=== PATIENT | female | born 1965 | race Caucasian/White ===

== ENCOUNTER 2017-12-24 09:05 | Inpatient (IN) | payer OTHER ==
[2017-12-24 09:50] LABS: BASOPHILS # (AUTO) 0.1 10^3/uL (0.0-0.1); BASOPHILS % (AUTO) 0.7 %; HGB - HEMOGLOBIN 14.8 g/dL (12.0-16.0); LYMPHOCYTES # (AUTO) 0.6 10^3/uL (1.5-3.5); LYMPHOCYTES % (AUTO) 3.4 %; MEAN CORPUSCULAR HEMOGLOBIN 29.3 pg (27.0-31.0); MEAN CORPUSCULAR HGB CONC 33.3 g/dL (32.0-36.0); MEAN CORPUSCULAR VOLUME 87.9 fL (81.0-99.0); MEAN PLATELET VOLUME 8.7 fL (7.9-10.8); MONOCYTES # (AUTO) 0.5 10^3/uL (0.0-1.0); MONOCYTES % (AUTO) 2.7 %; NEUTROPHILS % (AUTO) 93.2 %; PLT - PLATELET COUNT 323 10^3/uL (130-450); RED BLOOD COUNT 5.06 10^6/uL (4.20-5.40); RED CELL DISTRIBUTION WIDTH 13.1 % (12.0-15.0); WHITE BLOOD COUNT 18.2 x10^3/uL (4.8-10.8)
--- NOTE | 2017-12-24 09:55 | ED Physician Documentation ---
History of Present Illness - Stated complaint Stated Complaint: VOMITING/DIARRHEA - Chief complaint Chief Complaint: Abd Pain - Additonal information Additional information: hx from pt 52 female recent colonoscopy showed no cancer but has diverticulosis NV diarrhea since midnight lower abd pain L > R now stool is all blood no urinary sx no blood thinners no travel no sick contacts maybe ate a bad cheese stick no prior surgery Review of Systems Constitutional: denies: Fever, Chills Cardiac: denies: Chest pain / pressure Respiratory: denies: Dyspnea GI: reports: Abdominal Pain, Nausea, Vomiting, Diarrhea, Bloody / black stool. denies: Hematemesis : denies: Dysuria, Hematuria, Now EGA Endocrine: denies: Easy bruising / bleeding Immunocompromised: denies: Immunocompromised PD PAST MEDICAL HISTORY - Past Medical History : Kidney stones - Past Surgical History Past Surgical History: No - Present Medications Home Medications: Ambulatory Orders Medication Instructions Recorded Confirmed Cetirizine HCl [Zyrtec] 10 mg PO PRN 01/25/15 01/25/15 Aspirin [Adult Aspirin Regimen] 81 mg PO 12/24/17 - Allergies Allergies/Adverse Reactions: Allergies Allergy/AdvReac Type Severity Reaction Status Date / Time No Known Drug Allergies Allergy Verified 12/24/17 09:34 - Social History Does the pt smoke?: No Smoking Status: Never smoker Does the pt drink ETOH?: No Does the pt have substance abuse?: No - Immunizations Immunizations are current?: Yes PD ED PE NORMAL - Vitals Vital signs reviewed: Yes - Cardiac Cardiac: RRR - Respiratory Respiratory: No respiratory distress - Abdomen Abdomen: Soft, Other (mod TTP LLQ s peritoneal signs, no hermia) - Rectal Rectal: Other (small hemorrhoid s bleeding, no mass on HUMPHREY, no fissure, bloody mucous on exam) Results - Vitals Vitals: Vital Signs - 24 hr 12/24/17 12/24/17 12/24/17 09:18 10:35 12:58 Temperature 36.4 C L Heart Rate 94 95 89 Respiratory 20 18 Rate Blood Pressure 145/75 H 127/70 134/64 H O2 Saturation 99 100 97 12/24/17 15:01 Temperature Heart Rate 89 Respiratory Rate Blood Pressure 115/64 O2 Saturation 95 Oxygen O2 Source Room air - Labs Labs: Laboratory Tests 12/24/17 12/24/17 12/24/17 08:35 09:35 09:35 WBC 18.2 H RBC 5.06 Hgb 14.8 Hct 44.4 MCV 87.9 MCH 29.3 MCHC 33.3 RDW 13.1 Plt Count 323 MPV 8.7 Neut # (Auto) 17.0 H Lymph # (Auto) 0.6 L [place] # (Auto) 0.5 Eos # (Auto) 0.0 Baso # (Auto) 0.1 Absolute Nucleated RBC 0.00 Nucleated RBC % 0.0 Sodium 136 Potassium 4.3 Chloride 100 L Carbon Dioxide 21 Anion Gap 15.0 H BUN 20 Creatinine 0.8 Estimated GFR (MDRD) 75 L Glucose 160 H Calcium 9.4 Total Bilirubin 1.0 AST 41 ALT 30 Alkaline Phosphatase 85 Total Protein 8.2 Albumin 4.6 Globulin 3.6 Albumin/Globulin Ratio 1.3 Lipase 28 Serum HCG, Qual NEGATIVE Urine Color Urine Clarity Urine pH Ur Specific [place] Urine Protein Urine Glucose (UA) Urine Ketones Urine Occult Blood Urine Nitrite Urine Bilirubin Urine Urobilinogen Ur Leukocyte Esterase Ur Microscopic Review Urine Culture Comments 12/24/17 11:25 WBC RBC Hgb Hct MCV MCH MCHC RDW Plt Count MPV Neut # (Auto) Lymph # (Auto) [place] # (Auto) Eos # (Auto) Baso # (Auto) Absolute Nucleated RBC Nucleated RBC % Sodium Potassium Chloride Carbon Dioxide Anion Gap BUN Creatinine Estimated GFR (MDRD) Glucose Calcium Total Bilirubin AST ALT Alkaline Phosphatase Total Protein Albumin Globulin Albumin/Globulin Ratio Lipase Serum HCG, Qual Urine Color YELLOW Urine Clarity CLEAR Urine pH 5.5 Ur Specific [place] 1.025 Urine Protein NEGATIVE Urine Glucose (UA) NEGATIVE Urine Ketones TRACE Urine Occult Blood NEGATIVE Urine Nitrite NEGATIVE Urine Bilirubin NEGATIVE Urine Urobilinogen 0.2 (NORMAL) Ur Leukocyte Esterase NEGATIVE Ur Microscopic Review NOT INDICATED Urine Culture Comments NOT INDICATED - Rads (name of study) CTAP with IV con Radiology: See rad report (segmental marked nodular thickening and meld pericolonic edema involving distal transverse colon to distal descending colon c ould be ischemic (but rad report states nl vasculatur and CT was with IV con) or inflammatory (no hx UC crohns) or infectious (favor), no perf or asbcess, diverticulosis, no -itis, renal calculi no ureteral stones, fatty liver) PD MEDICAL DECISION MAKING - ED course ED course: CT shows colitis transverse and desc colon - ddx includes ischemic and inflammatory but has no risk factos for ischemic such as a fib and would think GI dz such as crohns or UC would have presented before age 52 deirdre[ect infectious gave unasyn severe colitis with GIB, presently hemodynamically stable pain difficult to control d/w pt option of dc home on clear liquids PO pain meds and ab and next day PMD follow up for recheck exam amd H/H vs admit to obs for IVF and ab and serial H/H - she states she will be unlikely to secure next day fup for ER vist at [facility] so will d/w hospitalist to admit gave unasyn pending stool culture spoke to hospitalist at 1410 and she will admit Departure - Departure Disposition: 66 [facility] DC/Xfer Clinical Impression: Colitis GI bleed Qualifiers: GI bleed type/associated pathology: unspecified gastrointestinal hemorrhage type Qualified Code(s): K92.2 - Gastrointestinal hemorrhage, unspecified Leukocytosis Qualifiers: Leukocytosis type: unspecified Qualified Code(s): D72.829 - Elevated white blood cell count, unspecified Condition: Good
[2017-12-24] MEDS ORDERED: ONDANSETRON 4 MG/2 ML VIAL IVP STA (09:57)
[2017-12-24] MEDS ORDERED: MORPHINE 2 MG/ML CARPUJECT IVP STA ×3 (09:57→13:59)
[2017-12-24] MEDS ORDERED: SODIUM CHLORIDE 0.9% 1,000 ML IV ONE (09:57)
[2017-12-24 10:06] LABS: ALBUMIN 4.6 g/dL (3.2-5.5); ALBUMIN/GLOBULIN RATIO 1.3 (1.0-2.2); CALCIUM 9.4 mg/dL (8.5-10.3); CREATININE 0.8 mg/dL (0.4-1.0); TOTAL PROTEIN 8.2 g/dL (6.7-8.2)
[2017-12-24 10:18] LABS: HCG,QUALITATIVE BLOOD NEGATIVE
[2017-12-24 11:39] LABS: BILIRUBIN,URINE NEGATIVE (NEGATIVE); GLUCOSE, URINE (UA) NEGATIVE (NEGATIVE); KETONES,URINE (UA) TRACE mg/dL (NEGATIVE); LEUKOCYTE ESTERASE, URINE NEGATIVE (NEGATIVE); NITRITE,URINE NEGATIVE (NEGATIVE); OCCULT BLOOD,URINE NEGATIVE (NEGATIVE); PH,URINE 5.5 PH (5.0-7.5); PROTEIN,URINE NEGATIVE (NEGATIVE); UROBILINOGEN,URINE 0.2 (NORMAL) E.U./dL (NORMAL)
[2017-12-24 11:43] LABS: CLARITY,URINE CLEAR (CLEAR)
[2017-12-24] MEDS ORDERED: IOPAMIDOL-300 100 ML VIAL ONE (12:01)
--- NOTE | 2017-12-24 12:47 | CT Report ---
Reason: lower abd pain GIB Procedure Date: 12/24/2017 Accession Number: [id number] / [id number] Procedure: CT - Abdomen/Pelvis W/ CPT Code: FULL RESULT: EXAM: CT ABDOMEN AND PELVIS EXAM DATE: 12/24/2017 12:18 PM. CLINICAL HISTORY: Lower abdominal pain. GI bleed. COMPARISONS: 01/25/2015. TECHNIQUE: Routine helical CT imaging was performed through the abdomen and pelvis. IV contrast: Isovue-300 100 mL. Enteric contrast: No. Reconstructions: Coronal and sagittal. In accordance with CT protocol optimization, one or more of the following dose reduction techniques were utilized for this exam: automated exposure control, adjustment of mA and/or KV based on patient size, or use of iterative reconstructive technique. FINDINGS: Lung Bases: Bibasilar scar/atelectasis. Included portions of the heart are unremarkable. Small hiatal hernia. Liver: Diffuse fatty liver. Patent portal vein. Gallbladder/Bile Ducts: Unremarkable. Spleen: Normal. Pancreas: Normal. Adrenal Glands: Normal. Kidneys: Kidneys enhance symmetrically. Bilateral renal low attenuation lesions are again seen the largest in the mid upper pole of both kidneys measuring up to 8-9 mm. Bilateral nonobstructing renal calculi are seen the largest of which is present in the lower pole of the left kidney measuring 8 mm. No hydronephrosis. No ureteral dilatation or ureteral calculi. Peritoneal Cavity/Bowel: Stomach is nondistended. Descending duodenal diverticula noted. No small bowel obstruction or small bowel wall thickening. Small fatty umbilical hernia. Circumferential nodular thickening and pericolonic edema seen involving and extending from the distal transverse colon to the distal descending colon to its junction with the sigmoid colon. Distal colonic largely sigmoid colon diverticulosis. No free air or abscess. The appendix is well visualized and normal. Pelvic Organs: Area of heterogeneity in the fundus of the uterus measuring 1.9 cm as well as a lobular contour along the right uterus measuring up to 3 cm may represent uterine myomas. No pelvic adenopathy or pelvic free fluid. The urinary bladder is unremarkable. Vasculature: No aneurysms or other significant abnormality. Bones: Degenerative changes of the lumbar spine greatest at L3-L4. Lumbar facet arthropathy. Mild dextroscoliosis of the lower lumbar spine. No acute osseous abnormalities. Other: None. IMPRESSION: 1. Segmental marked nodular thickening and mild pericolonic edema involving the distal transverse colon to the distal descending colon. Findings may be due to focal segment of ischemic colitis versus inflammatory/infectious colitis. No free air or abscess. 2. Normal appendix. 3. Colonic diverticulosis. No diverticulitis. No bowel obstruction. 4. Nonobstructing bilateral renal calculi. 5. Fatty liver. RADIA
[2017-12-24] MEDS ORDERED: AMPICILLIN/SULBACTAM 3 GM in SODIUM CHLORIDE 0.9% MINIBAG 100 ML IV STA (13:59)
[2017-12-24] MEDS ORDERED: D5.45NS W/20 MEQ KCL 1,000 ML IV STA (14:01)
--- NOTE | 2017-12-24 15:16 | CONSULTATION NOTE ---
Referring Provider Consult Date: 12/24/17 Chief Complaint - Chief Complaint Chief Complaint: Blood in stool History of Present Illness - History of Present Illness HPI Comment/Other: 52 yo woman admitted with one day of lower abdominal pain, rectal bleeding, and vomiting. Last colonoscopy in December normal except for diverticula. 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 : reports: None, Kidney stones HEENT: reports: None Psych: reports: None Musculoskeletal: reports: None Derm: reports: None MRSA Hx?: Yes Other Past Medical History: Diverticulosis Meds/Allgy - Home Medications Home Medications: Ambulatory Orders Medication Instructions Recorded Confirmed Cetirizine HCl [Zyrtec] 10 mg PO PRN 01/25/15 01/25/15 Aspirin [Adult Aspirin Regimen] 81 mg PO 12/24/17 - Allergies Allergies/Adverse Reactions: Allergies Allergy/AdvReac Type Severity Reaction Status Date / Time No Known Drug Allergies Allergy Verified 12/24/17 09:34 Review of Systems - Gastrointestinal Gastrointestinal: reports: Abdominal pain, Diarrhea, Vomiting - All Other Systems All Other Systems: reports: Reviewed and negative Exam - Vital Signs Vital Signs: Vital Signs x48h Temp Pulse Resp BP Pulse Ox 12/24/17 15:01 89 115/64 95 12/24/17 12:58 89 18 134/64 H 97 12/24/17 10:35 95 127/70 100 12/24/17 09:18 36.4 C L 94 20 145/75 H 99 - Physical Exam General Appearance: positive: No acute distress Eyes Bilateral: positive: Normal inspection ENT: positive: ENT inspection nml Neck: positive: Nml inspection Respiratory: positive: Chest non-tender Cardiovascular: positive: Regular rate & rhythm Abdomen: positive: Tenderness Rectal: positive: Stool - heme POS Back: positive: Nml inspection Skin: positive: Color nml Neurologic/Psychiatric: positive: Oriented x3 Conclusion/Plan - Diagnosis Diagnosis: colitis - Plan Plan: Pt had a CT which showed colitis. Most likely infectious as it is her first episode and the CT showed normal blood flow. Diverticulitis is also a possibility, although less so with the vomiting. The treatment is the same regardless - bowel rest, antibiotics, and IV fluids. Recommend a stool culture as well and possibly Cdiff screen. - Lab Results Fish Bones: 12/24/17 09:35 12/24/17 09:35
[2017-12-24] MEDS ORDERED: ZOLPIDEM 5 MG TABLET PO PRN (15:28)
[2017-12-24] MEDS ORDERED: ONDANSETRON 4 MG/2 ML VIAL IVP PRN (15:28)
[2017-12-24] MEDS ORDERED: oxyCODONE 5 MG TABLET PO PRN (15:28)
[2017-12-24] MEDS ORDERED: SODIUM CHLORIDE FLUSH 0.9% 10 ML SYRINGE IVP PRN (15:28)
[2017-12-24] MEDS ORDERED: PROMETHAZINE 25 MG/1 ML VIAL IM PRN (15:28)
--- NOTE | 2017-12-24 15:45 | HISTORY & PHYSICAL EXAMINATION ---
Chief Complaint - Chief Complaint Chief Complaint: N/V/D, abdominal pain History of Present Illness - History of Present Illness HPI Comment/Other: Ms. Bartholoemw is 52-yrs old female who present ER complains of nausea, vomiting, diarrhea, and lower quadrant abdominal pain. Pt report since last night, she developed nausea, vomiting, diarrhea and abdominal pain. The abdominal pain located at lower quadrant of abdomen. She denies recent travel or any foot poison. She did report she ate very fatty steak on last night dinner. She report she had a recent colonoscopy which showed no cancer but had diverticulosis. pt also report fresh bloody stool. CT of abdomen indicates focal segment of ischemic colitis versus inflammatory/infectious colitis. There are No free air or abscess, no bowel obstruction, no diverticulitis. Lab reveals significantly elevated WBC. GI Surgeon, Dr. Thapa, was consulted for GI bleeding and possible ischemic colitis. pt denies fever, chill, chest pain, shortness of breath. 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 Living arrangement: At home Living Situation: With family Social History Notes: pt denies cigarette smoking, alcohol and drug issue. - POLST POLST Status: Full Code Meds/Allgy - Home Medications Home Medications: Ambulatory Orders Medication Instructions Recorded Confirmed Cetirizine HCl [Zyrtec] 10 mg PO PRN 01/25/15 01/25/15 Aspirin [Adult Aspirin Regimen] 81 mg PO 12/24/17 - Allergies Allergies/Adverse Reactions: Allergies Allergy/AdvReac Type Severity Reaction Status Date / Time No Known Drug Allergies Allergy Verified 12/24/17 09:34 Review of Systems - Constitutional Constitutional: denies: Fatigue, Fever, Chills, Malaise, Weakness, Poor appetite, Diaphoresis, Night sweats - Eyes Eyes: denies: Pain, Irritation, Amaurosis, Blurred vision, Spots in vision, Field loss, Vision loss, Dipolpia - Ears, Nose & Throat Ears, Nose & Throat: denies: Ear pain, Hearing loss, Tinnitus, Vertigo, Nasal pain, Nasal discharge, Nosebleeds, Nasal obstruction, Postnasal drainage, Dentures, Sore throat, Hoarseness, Mouth lesions, Bleeding gums - Cardiovascular Cariovascular: denies: Irregular heart rate, Palpitations, Chest pain, Edema, Lightheadedness, Syncope, Exertional dyspnea, Decr. exercise tolerance - Respiratory Respiratory: denies: Cough, Sputum production, Wheezing, Snoring, Hemoptysis, Orthopnea, SOB at rest, SOB with exertion - Gastrointestinal Gastrointestinal: reports: Abdominal pain, Diarrhea, Rectal bleeding, Nausea, Vomiting. denies: Abdominal distention, Constipation, Change in bowel habits, B lack stools, Bloody stools, Bile emesis, Erick blood emesis, Coffee grounds emesis, Reflux/heartburn, Bloating - Genitourinary Genitourinary: denies: Dysuria, Frequency, Urgency, Hematuria, Incontinence, Flank pain, Nocturia, Urethral discharge - Musculoskeletal Musculoskeletal: denies: Muscle pain, Back pain, Muscle aches, Stiffness, Limited range of motion, Muscle weakness, Gout, Joint pain - Integumentary Integumentary: denies: Rash, Pruritis, Lesions, Dryness, Lumps, Acne, Pigment changes, Nail changes - Neurological Neurological: denies: General weakness, Focal weakness, Headache, Dizziness, Numbness, Memory problems, Pre-existing deficit, Abnormal gait, Seizures, Incoordination, Slurred speech - Psychiatric Psychiatric: denies: Depression, Anxiety, Suicidal, Delusions, Hallucinations, Homicidal - Endocrine Endocrine: denies: Polyuria, Polydypsia, Polyphagia, Intolerance to cold - Hematologic/Lymphatic Hematologic/Lymphatic: denies: Anemia, Bruising, Petechiae, Blood clots, Lymphadenopathy, Bleeding tendencies Prior Level of Functionality: she is living independently Exam - Vital Signs Reviewed Vital Signs: Yes Vital Signs: Vital Signs x48h Temp Pulse Resp BP Pulse Ox 12/24/17 15:01 89 115/64 95 12/24/17 12:58 89 18 134/64 H 97 12/24/17 10:35 95 127/70 100 12/24/17 09:18 36.4 C L 94 20 145/75 H 99 - Physical Exam General Appearance: positive: No acute distress, Alert. negative: Lethargic Eyes Bilateral: positive: Normal inspection, PERRL, No lid inflammation, Conjunctivae nml ENT: positive: ENT inspection nml, Pharynx nml, No signs of dehydration. negative: Purulent nasal drainage, Pharyngeal erythema, Oral lesions Neck: positive: Nml inspection, Thyroid nml, No JVD, Trachea midline. negative: Thyromegaly, Lymphadenopathy (R), Lymphadenopathy (L), Stiff neck, Swelling/bruising, Tracheal deviation Respiratory: positive: Chest non-tender, No respiratory distress, Breath sounds nml. negative: Wheezes, Rales, Rhonchi Cardiovascular: positive: Regular rate & rhythm, No murmur, No gallop. negative: Irregularly irregular, Extrasystoles, Tachycardia, Bradycardia, JVD present, Systolic murmur, Diastolic murmur Peripheral Pulses: positive: 2+ Abdomen: positive: Non-tender, No organomegaly, Nml bowel sounds, No distention. negative: Tenderness, Guarding, Rebound Back: positive: Nml inspection. negative: CVA tenderness (R), CVA tenderness (L) Skin: positive: Color nml, No rash, Warm, Dry. negative: Cyanosis, Diaphoresis, Pallor Extremities: positive: Non-tender, Full ROM, Nml appearance. negative: Calf te nderness, Joint swelling, Ruby's sign/cords Neurologic/Psychiatric: positive: Oriented x3, Motor nml, Sensation nml, Mood/affect nml. negative: Weakness, Sensory loss, Facial droop, Slurred/abnml speech, Depressed mood/affect Conclusion/Plan - Problem List (1) Colitis Conclusion/Plan: pt has significantly elevated WBC, CT reveals colitis antibiotics: Flagyl, Cipro IVF of NS bowel rest, with clear diet consult with GI surgeon for possible ischemic colitis, will follow up (2) GI bleed Conclusion/Plan: rectal bleeding, but pt is hemodynamic stable, HGB 14, possible ulcerative colitis with bleeding, or hemorrhoids consult with GI surgeon H&H Qualifiers: GI bleed type/associated pathology: unspecified gastrointestinal hemorrhage type Qualified Code(s): K92.2 - Gastrointestinal hemorrhage, unspecified (3) Leukocytosis Conclusion/Plan: it appears from infection/inflammation of colitis IV of antibiotics IVF of NS continue lab monitor Qualifiers: Leukocytosis type: unspecified Qualified Code(s): D72.829 - Elevated white blood cell count, unspecified (4) Full code status Conclusion/Plan: pt request full code status - Lab Results Fish Bones: 12/25/17 05:16 12/25/17 05:16 Core Measures - Anticipated LOS I expect patient to be DC'd or transferred within 96 hours.: Yes - DVT/VTE - Prophylaxis VTE/DVT Device ordered at admit?: Yes VTE/DVT Prophylaxis med ordered at admit?: Yes
[2017-12-24] MEDS ORDERED: IOPAMIDOL-300 100 ML VIAL IVP ONE (15:49)
[2017-12-24] MEDS: SODIUM CHLORIDE 0.9% 1,000 ML IV SCH (17:44)
[2017-12-24] MEDS: CIPROFLOXACIN 400 MG/200 ML 200 ML IV SCH (17:44)
[2017-12-24] MEDS: SODIUM CHLORIDE FLUSH 0.9% 10 ML SYRINGE IVP SCH (17:44)
[2017-12-24] MEDS: PANTOPRAZOLE 40 MG TABLET PO SCH (17:44)
[2017-12-24] MEDS: PROCHLORPERAZINE 10 MG/2 ML VIAL IVP PRN (17:47)
[2017-12-24] MEDS: MORPHINE 2 MG/ML CARPUJECT IVP PRN (17:56)
[2017-12-24] MEDS: metroNIDAZOLE 500 MG/100 ML 500 MG/100 ML BAG IV SCH (19:08)
[2017-12-24 21:02] LABS: HGB - HEMOGLOBIN 13.2 g/dL (12.0-16.0)
[2017-12-25] MEDS: metroNIDAZOLE 500 MG/100 ML 500 MG/100 ML BAG IV SCH ×3 (02:27→19:52)
[2017-12-25] MEDS: MORPHINE 2 MG/ML CARPUJECT IVP PRN (03:04)
[2017-12-25] MEDS: CIPROFLOXACIN 400 MG/200 ML 200 ML IV SCH ×2 (05:03→17:17)
[2017-12-25] MEDS: SODIUM CHLORIDE FLUSH 0.9% 10 ML SYRINGE IVP SCH ×3 (05:06→17:18)
[2017-12-25 06:05] LABS: BASOPHILS % (AUTO) 0.1 %; EOSINOPHILS % (AUTO) 0.1 %; HGB - HEMOGLOBIN 12.7 g/dL (12.0-16.0); LYMPHOCYTES % (AUTO) 14.1 %; MEAN CORPUSCULAR HEMOGLOBIN 29.3 pg (27.0-31.0); MEAN CORPUSCULAR HGB CONC 32.7 g/dL (32.0-36.0); MEAN CORPUSCULAR VOLUME 89.6 fL (81.0-99.0); MEAN PLATELET VOLUME 8.4 fL (7.9-10.8); MONOCYTES # (AUTO) 0.9 10^3/uL (0.0-1.0); MONOCYTES % (AUTO) 6.2 %; NEUTROPHILS # (AUTO) 11.4 10^3/uL (1.5-6.6); NEUTROPHILS % (AUTO) 79.5 %; PLT - PLATELET COUNT 277 10^3/uL (130-450); RED BLOOD COUNT 4.33 10^6/uL (4.20-5.40); RED CELL DISTRIBUTION WIDTH 13.2 % (12.0-15.0); WHITE BLOOD COUNT 14.4 x10^3/uL (4.8-10.8)
[2017-12-25 06:12] LABS: ALBUMIN 3.3 g/dL (3.2-5.5); ALBUMIN/GLOBULIN RATIO 1.1 (1.0-2.2); BILIRUBIN,TOTAL 0.9 mg/dL (0.2-1.0); CALCIUM 8.1 mg/dL (8.5-10.3); CREATININE 0.8 mg/dL (0.4-1.0); MAGNESIUM 1.8 mg/dL (1.7-2.8); TOTAL PROTEIN 6.2 g/dL (6.7-8.2)
[2017-12-25] MEDS: SODIUM CHLORIDE 0.9% 1,000 ML IV SCH ×2 (06:35→18:09)
[2017-12-25] MEDS: PANTOPRAZOLE 40 MG TABLET PO SCH (06:37)
--- NOTE | 2017-12-25 09:50 | PROVIDER PROGRESS NOTE ---
Subjective - Prog Note Date Prog Note Date: 12/25/17 Prog Note Time: 09:48 - Subjective Pt reports feeling: Improved Objective - Vital Signs/Intake & Output Vital Signs: Vital Signs x48h Temp Pulse Pulse Resp BP Pulse Ox 12/25/17 09:16 37.1 C 86 18 94 12/25/17 08:00 37.1 C 86 18 114/69 94 Intake & Output: Intake & Output 12/22/17 12/23/17 12/24/17 12/25/17 23:59 23:59 23:59 23:59 Intake Total 2600 1300.000 Output Total 200 820 Balance 2400 480.000 - Objective General Appearance: positive: No acute distress Eyes Bilateral: positive: Normal inspection ENT: positive: ENT inspection nml Neck: positive: Nml inspection Respiratory: positive: Chest non-tender Cardiovascular: positive: Regular rate & rhythm Back: positive: Nml inspection Skin: positive: Color nml Extremities: positive: Non-tender Neurologic/Psychiatric: positive: Oriented x3 (mild discomfort lower abdomen, unchanged from last night.) - Lab Results Fish Bones: 12/25/17 05:16 12/25/17 05:16 Other Labs: Lab Results x24hrs 12/25/17 12/25/17 12/24/17 Range/Units 05:16 05:16 20:56 WBC 14.4 H (4.8-10.8) x10^3/uL RBC 4.33 (4.20-5.40) 10^6/uL Hgb 12.7 13.2 (12.0-16.0) g/dL Hct 38.7 39.8 (37.0-47.0) % MCV 89.6 (81.0-99.0) fL MCH 29.3 (27.0-31.0) pg MCHC 32.7 (32.0-36.0) g/dL RDW 13.2 (12.0-15.0) % Plt Count 277 (130-450) 10^3/uL MPV 8.4 (7.9-10.8) fL Neut # (Auto) 11.4 H (1.5-6.6) 10^3/uL Lymph # (Auto) 2.0 (1.5-3.5) 10^3/uL [place] # (Auto) 0.9 (0.0-1.0) 10^3/uL Eos # (Auto) 0.0 (0.0-0.7) 10^3/uL Baso # (Auto) 0.0 (0.0-0.1) 10^3/uL Absolute Nucleated RBC 0.00 x10^3/uL Nucleated RBC % 0.0 /100WBC Sodium 135 (135-145) mmol/L Potassium 4.0 (3.5-5.0) mmol/L Chloride 102 (101-111) mmol/L Carbon Dioxide 25 (21-32) mmol/L Anion Gap 8.0 (6-13) BUN 13 (6-20) mg/dL Creatinine 0.8 (0.4-1.0) mg/dL Estimated GFR (MDRD) 75 L (>89) Glucose 136 H (70-100) mg/dL Calcium 8.1 L (8.5-10.3) mg/dL Phosphorus 3.0 (2.5-4.6) mg/dL Magnesium 1.8 (1.7-2.8) mg/dL Total Bilirubin 0.9 (0.2-1.0) mg/dL AST 24 (10-42) IU/L ALT 19 (10-60) IU/L Alkaline Phosphatase 64 (42-121) IU/L Total Protein 6.2 L (6.7-8.2) g/dL Albumin 3.3 (3.2-5.5) g/dL Globulin 2.9 (2.1-4.2) g/dL Albumin/Globulin Ratio 1.1 (1.0-2.2) Lipase (22-51) U/L Serum HCG, Qual Urine Color Urine Clarity (CLEAR) Urine pH (5.0-7.5) PH Ur Specific [place] (1.002-1.030) Urine Protein (NEGATIVE) mg/dL Urine Glucose (UA) (NEGATIVE) mg/dL Urine Ketones (NEGATIVE) mg/dL Urine Occult Blood (NEGATIVE) Urine Nitrite (NEGATIVE) Urine Bilirubin (NEGATIVE) Urine Urobilinogen (NORMAL) E.U./dL Ur Leukocyte Esterase (NEGATIVE) Ur Microscopic Review Urine Culture Comments 12/24/17 12/24/17 12/24/17 Range/Units 11:25 09:35 09:35 WBC 18.2 H (4.8-10.8) x10^3/uL RBC 5.06 (4.20-5.40) 10^6/uL Hgb 14.8 (12.0-16.0) g/dL Hct 44.4 (37.0-47.0) % MCV 87.9 (81.0-99.0) fL MCH 29.3 (27.0-31.0) pg MCHC 33.3 (32.0-36.0) g/dL RDW 13.1 (12.0-15.0) % Plt Count 323 (130-450) 10^3/uL MPV 8.7 (7.9-10.8) fL Neut # (Auto) 17.0 H (1.5-6.6) 10^3/uL Lymph # (Auto) 0.6 L (1.5-3.5) 10^3/uL [place] # (Auto) 0.5 (0.0-1.0) 10^3/uL Eos # (Auto) 0.0 (0.0-0.7) 10^3/uL Baso # (Auto) 0.1 (0.0-0.1) 10^3/uL Absolute Nucleated RBC 0.00 x10^3/uL Nucleated RBC % 0.0 /100WBC Sodium 136 (135-145) mmol/L Potassium 4.3 (3.5-5.0) mmol/L Chloride 100 L (101-111) mmol/L Carbon Dioxide 21 (21-32) mmol/L Anion Gap 15.0 H (6-13) BUN 20 (6-20) mg/dL Creatinine 0.8 (0.4-1.0) mg/dL Estimated GFR (MDRD) 75 L (>89) Glucose 160 H (70-100) mg/dL Calcium 9.4 (8.5-10.3) mg/dL Phosphorus (2.5-4.6) mg/dL Magnesium (1.7-2.8) mg/dL Total Bilirubin 1.0 (0.2-1.0) mg/dL AST 41 (10-42) IU/L ALT 30 (10-60) IU/L Alkaline Phosphatase 85 (42-121) IU/L Total Protein 8.2 (6.7-8.2) g/dL Albumin 4.6 (3.2-5.5) g/dL Globulin 3.6 (2.1-4.2) g/dL Albumin/Globulin Ratio 1.3 (1.0-2.2) Lipase 28 (22-51) U/L Serum HCG, Qual Urine Color YELLOW Urine Clarity CLEAR (CLEAR) Urine pH 5.5 (5.0-7.5) PH Ur Specific [place] 1.025 (1.002-1.030) Urine Protein NEGATIVE (NEGATIVE) mg/dL Urine Glucose (UA) NEGATIVE (NEGATIVE) mg/dL Urine Ketones TRACE (NEGATIVE) mg/dL Urine Occult Blood NEGATIVE (NEGATIVE) Urine Nitrite NEGATIVE (NEGATIVE) Urine Bilirubin NEGATIVE (NEGATIVE) Urine Urobilinogen 0.2 (NORMAL) (NORMAL) E.U./dL Ur Leukocyte Esterase NEGATIVE (NEGATIVE) Ur Microscopic Review NOT INDICATED Urine Culture Comments NOT INDICATED 12/24/17 Range/Units 08:35 WBC (4.8-10.8) x10^3/uL RBC (4.20-5.40) 10^6/uL Hgb (12.0-16.0) g/dL Hct (37.0-47.0) % MCV (81.0-99.0) fL MCH (27.0-31.0) pg MCHC (32.0-36.0) g/dL RDW (12.0-15.0) % Plt Count (130-450) 10^3/uL MPV (7.9-10.8) fL Neut # (Auto) (1.5-6.6) 10^3/uL Lymph # (Auto) (1.5-3.5) 10^3/uL [place] # (Auto) (0.0-1.0) 10^3/uL Eos # (Auto) (0.0-0.7) 10^3/uL Baso # (Auto) (0.0-0.1) 10^3/uL Absolute Nucleated RBC x10^3/uL Nucleated RBC % /100WBC Sodium (135-145) mmol/L Potassium (3.5-5.0) mmol/L Chloride (101-111) mmol/L Carbon Dioxide (21-32) mmol/L Anion Gap (6-13) BUN (6-20) mg/dL Creatinine (0.4-1.0) mg/dL Estimated GFR (MDRD) (>89) Glucose (70-100) mg/dL Calcium (8.5-10.3) mg/dL Phosphorus (2.5-4.6) mg/dL Magnesium (1.7-2.8) mg/dL Total Bilirubin (0.2-1.0) mg/dL AST (10-42) IU/L ALT (10-60) IU/L Alkaline Phosphatase (42-121) IU/L Total Protein (6.7-8.2) g/dL Albumin (3.2-5.5) g/dL Globulin (2.1-4.2) g/dL Albumin/Globulin Ratio (1.0-2.2) Lipase (22-51) U/L Serum HCG, Qual NEGATIVE Urine Color Urine Clarity (CLEAR) Urine pH (5.0-7.5) PH Ur Specific [place] (1.002-1.030) Urine Protein (NEGATIVE) mg/dL Urine Glucose (UA) (NEGATIVE) mg/dL Urine Ketones (NEGATIVE) mg/dL Urine Occult Blood (NEGATIVE) Urine Nitrite (NEGATIVE) Urine Bilirubin (NEGATIVE) Urine Urobilinogen (NORMAL) E.U./dL Ur Leukocyte Esterase (NEGATIVE) Ur Microscopic Review Urine Culture Comments Assessment/Plan - Problem List (1) Colitis Impression: Pt with resolving infectious colitis. No surgical intervention needed.
[2017-12-25] MEDS: POLYETHYLENE GLYCOL 3350 17 GM PACKET PO SCH (10:34)
[2017-12-25] MEDS: ACETAMINOPHEN 325 MG TABLET PO PRN (12:51)
[2017-12-25 16:46] LABS: HGB - HEMOGLOBIN 12.9 g/dL (12.0-16.0)
--- NOTE | 2017-12-25 17:00 | PROVIDER PROGRESS NOTE ---
Subjective - Prog Note Date Prog Note Date: 12/25/17 - Subjective Pt reports feeling: Improved Subjective: pt report her abdominal pain is better, N/V/D is controlled, no fever or chill, no CP Current Medications - Current Medications Current Medications: Active Medications Acetaminophen (Tylenol) 650 mg PO Q4HR PRN PRN Reason: Pain 1 to 4 Last Admin: 12/25/17 12:51 Dose: 650 mg Sodium Chloride (Normal Saline 0.9%) 1,000 mls @ 100 mls/hr IV .Q10H [facility] Last Admin: 12/25/17 06:35 Dose: 100 mls/hr Ciprofloxacin (Cipro 400 Mg/200 Ml) 200 mls @ 200 mls/hr IV Q12H [facility] Last Infusion: 12/25/17 06:05 Dose: Infused Metronidazole (Flagyl 500 Mg/100 Ml) 500 mg in 100 mls @ 100 mls/hr IV Q8H [facility] Last Infusion: 12/25/17 13:32 Dose: Infused Morphine Sulfate (Morphine (Carpuject)) 2 mg IVP Q2HR PRN PRN Reason: Pain 8 to 10 Last Admin: 12/25/17 03:04 Dose: 2 mg Ondansetron HCl (Zofran Inj) 4 mg IVP Q6HR PRN PRN Reason: Nausea / Vomiting Oxycodone HCl (Roxicodone) 5 mg PO Q4HR PRN PRN Reason: Pain 5 to 7 Last Admin: 12/24/17 17:44 Dose: 5 mg Pantoprazole Sodium (Protonix) 40 mg PO QDAC [facility] Last Admin: 12/25/17 06:37 Dose: 40 mg Polyethylene Glycol (Miralax) 17 gm PO DAILY [facility] Last Admin: 12/25/17 10:34 Dose: Not Given Prochlorperazine Edisylate (Compazine Inj) 10 mg IVP Q6HR PRN PRN Reason: Nausea / Vomiting Last Admin: 12/24/17 17:47 Dose: 10 mg Promethazine HCl (Phenergan Inj) 25 mg IM Q6HR PRN PRN Reason: Nausea / Vomiting Saccharomyces Boulardii (Florastor) 250 mg PO BIDWM [facility] Sodium Chloride (Normal Saline Flush 0.9%) 10 ml IVP PRN PRN PRN Reason: NEEDED PER PROVIDER ORDERS Sodium Chloride (Normal Saline Flush 0.9%) 10 ml IVP 0100,0900,1700 [facility] Last Admin: 12/25/17 10:34 Dose: Not Given Zolpidem Tartrate (Ambien) 5 mg PO QPM PRN PRN Reason: Insomnia Cetirizine HCl [Zyrtec] 10 mg PO PRN 01/25/15 Aspirin [Adult Aspirin Regimen] 81 mg PO 12/24/17 Objective - Vital Signs/Intake & Output Reviewed Vital Signs: Yes Vital Signs: Vital Signs x48h Temp Pulse Pulse Resp BP Pulse Ox 12/25/17 16:00 36.8 C 88 16 115/64 98 12/25/17 09:16 37.1 C 86 18 94 Intake & Output: Intake & Output 12/22/17 12/23/17 12/24/17 12/25/17 23:59 23:59 23:59 23:59 Intake Total 2600 2060.000 Output Total 200 2200 Balance 2400 -140.000 - Objective General Appearance: positive: No acute distress, Alert. negative: Lethargic Eyes Bilateral: positive: Normal inspection, PERRL, No lid inflammation, Conjunctivae nml ENT: positive: ENT inspection nml, Pharynx nml, No signs of dehydration. negative: Purulent nasal drainage, Pharyngeal erythema, Oral lesions Neck: positive: Nml inspection, Thyroid nml, No JVD, Trachea midline. negative: Thyromegaly, Lymphadenopathy (R), Lymphadenopathy (L), Stiff neck, Swelling/bruising, Tracheal deviation Respiratory: positive: Chest non-tender, No respiratory distress, Breath sounds nml. negative: Wheezes, Rales, Rhonchi Cardiovascular: positive: Regular rate & rhythm, No murmur, No gallop. negative: Irregularly irregular, Extrasystoles, Tachycardia, Bradycardia, JVD present, Systolic murmur, Diastolic murmur Peripheral Pulses: 2+ Radial (R), 2+ Radial (L), 2+ Dorsalis pedis (R), 2+ Dorsalis pedis (L) Abdomen: positive: Non-tender, No organomegaly, Nml bowel sounds, No distention. negative: Tenderness, Guarding, Rebound Back: positive: Nml inspection. negative: CVA tenderness (R), CVA tenderness (L) Skin: positive: Color nml, No rash, Warm, Dry. negative: Cyanosis, Diaphoresis, Pallor Extremities: positive: Non-tender, Full ROM, Nml appearance. negative: Calf tenderness, Joint swelling, Ruby's sign/cords Neurologic/Psychiatric: positive: Oriented x3, Motor nml, Sensation nml, Mood/affect nml. negative: Weakness, Sensory loss, Facial droop, Slurred/abnml speech, Depressed mood/affect - Lab Results Fish Bones: 12/25/17 16:08 12/25/17 05:16 Other Labs: Lab Results x24hrs 12/25/17 12/25/17 12/25/17 Range/Units 16:08 05:16 05:16 WBC 14.4 H (4.8-10.8) x10^3/uL RBC 4.33 (4.20-5.40) 10^6/uL Hgb 12.9 12.7 (12.0-16.0) g/dL Hct 39.1 38.7 (37.0-47.0) % MCV 89.6 (81.0-99.0) fL MCH 29.3 (27.0-31.0) pg MCHC 32.7 (32.0-36.0) g/dL RDW 13.2 (12.0-15.0) % Plt Count 277 (130-450) 10^3/uL MPV 8.4 (7.9-10.8) fL Neut # (Auto) 11.4 H (1.5-6.6) 10^3/uL Lymph # (Auto) 2.0 (1.5-3.5) 10^3/uL [place] # (Auto) 0.9 (0.0-1.0) 10^3/uL Eos # (Auto) 0.0 (0.0-0.7) 10^3/uL Baso # (Auto) 0.0 (0.0-0.1) 10^3/uL Absolute Nucleated RBC 0.00 x10^3/uL Nucleated RBC % 0.0 /100WBC Sodium 135 (135-145) mmol/L Potassium 4.0 (3.5-5.0) mmol/L Chloride 102 (101-111) mmol/L Carbon Dioxide 25 (21-32) mmol/L Anion Gap 8.0 (6-13) BUN 13 (6-20) mg/dL Creatinine 0.8 (0.4-1.0) mg/dL Estimated GFR (MDRD) 75 L (>89) Glucose 136 H (70-100) mg/dL Calcium 8.1 L (8.5-10.3) mg/dL Phosphorus 3.0 (2.5-4.6) mg/dL Magnesium 1.8 (1.7-2.8) mg/dL Total Bilirubin 0.9 (0.2-1.0) mg/dL AST 24 (10-42) IU/L ALT 19 (10-60) IU/L Alkaline Phosphatase 64 (42-121) IU/L Total Protein 6.2 L (6.7-8.2) g/dL Albumin 3.3 (3.2-5.5) g/dL Globulin 2.9 (2.1-4.2) g/dL Albumin/Globulin Ratio 1.1 (1.0-2.2) 12/24/17 Range/Units 20:56 WBC (4.8-10.8) x10^3/uL RBC (4.20-5.40) 10^6/uL Hgb 13.2 (12.0-16.0) g/dL Hct 39.8 (37.0-47.0) % MCV (81.0-99.0) fL MCH (27.0-31.0) pg MCHC (32.0-36.0) g/dL RDW (12.0-15.0) % Plt Count (130-450) 10^3/uL MPV (7.9-10.8) fL Neut # (Auto) (1.5-6.6) 10^3/uL Lymph # (Auto) (1.5-3.5) 10^3/uL [place] # (Auto) (0.0-1.0) 10^3/uL Eos # (Auto) (0.0-0.7) 10^3/uL Baso # (Auto) (0.0-0.1) 10^3/uL Absolute Nucleated RBC x10^3/uL Nucleated RBC % /100WBC Sodium (135-145) mmol/L Potassium (3.5-5.0) mmol/L Chloride (101-111) mmol/L Carbon Dioxide (21-32) mmol/L Anion Gap (6-13) BUN (6-20) mg/dL Creatinine (0.4-1.0) mg/dL Estimated GFR (MDRD) (>89) Glucose (70-100) mg/dL Calcium (8.5-10.3) mg/dL Phosphorus (2.5-4.6) mg/dL Magnesium (1.7-2.8) mg/dL Total Bilirubin (0.2-1.0) mg/dL AST (10-42) IU/L ALT (10-60) IU/L Alkaline Phosphatase (42-121) IU/L Total Protein (6.7-8.2) g/dL Albumin (3.2-5.5) g/dL Globulin (2.1-4.2) g/dL Albumin/Globulin Ratio (1.0-2.2) ABX Reporting Has patient been on IV antibiotics over the past 48 hours?: Yes Assessment/Plan - Problem List (1) Colitis Impression: 12/25 clinic improved, WBC is going down 14 from 18 continue clear diet today IVF pain control continue antibiotics follow up surgeon pt has significantly elevated WBC, CT reveals colitis antibiotics: Flagyl, Cipro IVF of NS bowel rest, with clear diet consult with GI surgeon for possible ischemic colitis, will follow up (2) GI bleed Conclusion/Plan: 12/25 pt report still little, but improved significantly continue H&H, vital monitor follow up surgeon rectal bleeding, but pt is hemodynamic stable, HGB 14, possible ulcerative colitis with bleeding, or hemorrhoids consult with GI surgeon H&H (3) Leukocytosis Conclusion/Plan: improved, WBC is down to 14 from 18 continue antibiotics it appears from infection/inflammation of colitis IV of antibiotics IVF of NS continue lab monitor (2) GI bleed Qualifiers: GI bleed type/associated pathology: unspecified gastrointestinal hemorrhage type Qualified Code(s): K92.2 - Gastrointestinal hemorrhage, unspecified (3) Leukocytosis Qualifiers: Leukocytosis type: unspecified Qualified Code(s): D72.829 - Elevated white blood cell count, unspecified
[2017-12-25] MEDS: SACCHAROMYCES BOULARDII 250 MG CAPSULE PO SCH (18:10)
[2017-12-25 23:40] LABS: HGB - HEMOGLOBIN 12.3 g/dL (12.0-16.0)
[2017-12-26] MEDS: metroNIDAZOLE 500 MG/100 ML 500 MG/100 ML BAG IV SCH ×3 (02:08→20:08)
[2017-12-26] MEDS: SODIUM CHLORIDE FLUSH 0.9% 10 ML SYRINGE IVP SCH ×3 (03:10→18:21)
[2017-12-26] MEDS: SODIUM CHLORIDE 0.9% 1,000 ML IV SCH ×2 (05:20→20:08)
[2017-12-26] MEDS: PANTOPRAZOLE 40 MG TABLET PO SCH (06:23)
[2017-12-26 06:25] LABS: BASOPHILS % (AUTO) 0.2 %; EOSINOPHILS # (AUTO) 0.1 10^3/uL (0.0-0.7); EOSINOPHILS % (AUTO) 0.6 %; HGB - HEMOGLOBIN 12.9 g/dL (12.0-16.0); LYMPHOCYTES # (AUTO) 2.2 10^3/uL (1.5-3.5); LYMPHOCYTES % (AUTO) 14.4 %; MEAN CORPUSCULAR HEMOGLOBIN 30.3 pg (27.0-31.0); MEAN CORPUSCULAR HGB CONC 34.1 g/dL (32.0-36.0); MEAN CORPUSCULAR VOLUME 88.8 fL (81.0-99.0); MEAN PLATELET VOLUME 8.4 fL (7.9-10.8); MONOCYTES # (AUTO) 1.1 10^3/uL (0.0-1.0); MONOCYTES % (AUTO) 6.9 %; NEUTROPHILS % (AUTO) 77.9 %; PLT - PLATELET COUNT 271 10^3/uL (130-450); RED BLOOD COUNT 4.27 10^6/uL (4.20-5.40); RED CELL DISTRIBUTION WIDTH 13.2 % (12.0-15.0); WHITE BLOOD COUNT 15.3 x10^3/uL (4.8-10.8)
[2017-12-26] MEDS: CIPROFLOXACIN 400 MG/200 ML 200 ML IV SCH ×2 (06:25→18:15)
[2017-12-26] MEDS: ACETAMINOPHEN 325 MG TABLET PO PRN (06:32)
[2017-12-26 06:43] LABS: ALBUMIN 3.5 g/dL (3.2-5.5); ALBUMIN/GLOBULIN RATIO 1.2 (1.0-2.2); BILIRUBIN,TOTAL 0.9 mg/dL (0.2-1.0); CALCIUM 8.3 mg/dL (8.5-10.3); CREATININE 0.7 mg/dL (0.4-1.0); MAGNESIUM 1.9 mg/dL (1.7-2.8); PHOSPHORUS 2.9 mg/dL (2.5-4.6); TOTAL PROTEIN 6.5 g/dL (6.7-8.2)
[2017-12-26] MEDS: POLYETHYLENE GLYCOL 3350 17 GM PACKET PO SCH (09:27)
[2017-12-26] MEDS: SACCHAROMYCES BOULARDII 250 MG CAPSULE PO SCH ×2 (09:27→18:15)
--- NOTE | 2017-12-26 11:55 | PROVIDER PROGRESS NOTE ---
Subjective - Prog Note Date Prog Note Date: 12/26/17 Prog Note Time: 11:54 - Subjective Pt reports feeling: Improved Subjective: Kayce complains of mild low abdominal pain, but this is much improved since admission. She denies any new symptoms such as chest pain, vomiting, rashes, or a new cough. Objective - Vital Signs/Intake & Output Reviewed Vital Signs: Yes Vital Signs: Vital Signs x48h Temp Pulse Resp BP Pulse Ox 12/26/17 08:00 37.1 C 78 16 110/65 95 Intake & Output: Intake & Output 12/23/17 12/24/17 12/25/17 12/26/17 23:59 23:59 23:59 23:59 Intake Total 2600 3897.000 1660.000 Output Total 200 3700 1800 Balance 2400 197.000 -140.000 - Objective General Appearance: positive: Alert, Mild distress Eyes Bilateral: positive: PERRL ENT: positive: Pharynx nml, No signs of dehydration Neck: positive: Thyroid nml, No JVD Respiratory: positive: Chest non-tender, No respiratory distress, Other (bilateral low lobe crackles, IS prescribed.) Cardiovascular: positive: Regular rate & rhythm, No gallop Peripheral Pulses: 1+ Radial (R), 1+ Radial (L) Abdomen: positive: Nml bowel sounds, Tenderness, Guarding, Other (rounded, soft) Back: positive: Nml inspection Skin: positive: No rash, Warm, Dry Extremities: positive: Non-tender, Full ROM, Nml appearance, No pedal edema Neurologic/Psychiatric: positive: Oriented x3, CN's nml (2-12), Motor nml, Sensation nml Reflexes: Bicep (R): 3+, Bicep (L): 3+ - Lab Results Fish Bones: 12/27/17 05:30 12/27/17 05:40 Other Labs: Lab Results x24hrs 12/26/17 12/26/17 12/25/17 Range/Units 05:50 05:50 23:25 WBC 15.3 H (4.8-10.8) x10^3/uL RBC 4.27 (4.20-5.40) 10^6/uL Hgb 12.9 12.3 (12.0-16.0) g/dL Hct 37.9 36.4 L (37.0-47.0) % MCV 88.8 (81.0-99.0) fL MCH 30.3 (27.0-31.0) pg MCHC 34.1 (32.0-36.0) g/dL RDW 13.2 (12.0-15.0) % Plt Count 271 (130-450) 10^3/uL MPV 8.4 (7.9-10.8) fL Neut # (Auto) 12.0 H (1.5-6.6) 10^3/uL Lymph # (Auto) 2.2 (1.5-3.5) 10^3/uL [place] # (Auto) 1.1 H (0.0-1.0) 10^3/uL Eos # (Auto) 0.1 (0.0-0.7) 10^3/uL Baso # (Auto) 0.0 (0.0-0.1) 10^3/uL Absolute Nucleated RBC 0.00 x10^3/uL Nucleated RBC % 0.0 /100WBC Sodium 137 (135-145) mmol/L Potassium 3.5 (3.5-5.0) mmol/L Chloride 104 (101-111) mmol/L Carbon Dioxide 26 (21-32) mmol/L Anion Gap 7.0 (6-13) BUN 8 (6-20) mg/dL Creatinine 0.7 (0.4-1.0) mg/dL Estimated GFR (MDRD) 88 L (>89) Glucose 117 H (70-100) mg/dL Calcium 8.3 L (8.5-10.3) mg/dL Phosphorus 2.9 (2.5-4.6) mg/dL Magnesium 1.9 (1.7-2.8) mg/dL Total Bilirubin 0.9 (0.2-1.0) mg/dL AST 19 (10-42) IU/L ALT 15 (10-60) IU/L Alkaline Phosphatase 67 (42-121) IU/L Total Protein 6.5 L (6.7-8.2) g/dL Albumin 3.5 (3.2-5.5) g/dL Globulin 3.0 (2.1-4.2) g/dL Albumin/Globulin Ratio 1.2 (1.0-2.2) 12/25/17 Range/Units 16:08 WBC (4.8-10.8) x10^3/uL RBC (4.20-5.40) 10^6/uL Hgb 12.9 (12.0-16.0) g/dL Hct 39.1 (37.0-47.0) % MCV (81.0-99.0) fL MCH (27.0-31.0) pg MCHC (32.0-36.0) g/dL RDW (12.0-15.0) % Plt Count (130-450) 10^3/uL MPV (7.9-10.8) fL Neut # (Auto) (1.5-6.6) 10^3/uL Lymph # (Auto) (1.5-3.5) 10^3/uL [place] # (Auto) (0.0-1.0) 10^3/uL Eos # (Auto) (0.0-0.7) 10^3/uL Baso # (Auto) (0.0-0.1) 10^3/uL Absolute Nucleated RBC x10^3/uL Nucleated RBC % /100WBC Sodium (135-145) mmol/L Potassium (3.5-5.0) mmol/L Chloride (101-111) mmol/L Carbon Dioxide (21-32) mmol/L Anion Gap (6-13) BUN (6-20) mg/dL Creatinine (0.4-1.0) mg/dL Estimated GFR (MDRD) (>89) Glucose (70-100) mg/dL Calcium (8.5-10.3) mg/dL Phosphorus (2.5-4.6) mg/dL Magnesium (1.7-2.8) mg/dL Total Bilirubin (0.2-1.0) mg/dL AST (10-42) IU/L ALT (10-60) IU/L Alkaline Phosphatase (42-121) IU/L Total Protein (6.7-8.2) g/dL Albumin (3.2-5.5) g/dL Globulin (2.1-4.2) g/dL Albumin/Globulin Ratio (1.0-2.2) ABX Reporting Has patient been on IV antibiotics over the past 48 hours?: Yes Assessment/Plan - Problem List (1) Colitis Impression: Imaging confirms likely infective colitis and the patient continues to have bloody diarrhea despite 4 days of inpatient treatment. General surgery is following. She is prescribed Cipro/Flagyl IV, which continues. Stool testing was negative. She has bilateral lower abdominal pain that is intermittent. Plan: Continue care, IV antibiotics and monitor for worsening. (2) GI bleed Impression: The patient continues to have several blood stools, but as per the patient they are becoming more mixed with stool. Plan: Continue to watch CBC, and monitor for worsening. Qualifiers: GI bleed type/associated pathology: unspecified gastrointestinal hemorrhage type Qualified Code(s): K92.2 - Gastrointestinal hemorrhage, unspecified (3) Diarrhea Impression: The patient states that she has had several loose, blood stools today, but denies dizziness or evidence of acute blood loss. Plan: Continue to monitor. (4) Abdominal pain Impression: The patient has much less abdominal pain today and this pain is intermittent. She is prescribed IV morphine as needed for pain and her diet has been advanced to a full liquid. Plan: Continue to encourage ambulation, treat pain, and advance diet. (5) Fatty liver disease, nonalcoholic Impression: Imaging revealed a fatty liver. The patient denies any alcohol use and does not have other signs of this on exam. Plan: Provide teaching and recommend follow up with PCP, order HgA1C to check for pre-diabetes.
[2017-12-26] MEDS: PROCHLORPERAZINE 10 MG/2 ML VIAL IVP PRN (19:07)
[2017-12-27] MEDS: metroNIDAZOLE 500 MG/100 ML 500 MG/100 ML BAG IV SCH ×2 (01:44→10:30)
[2017-12-27] MEDS: SODIUM CHLORIDE FLUSH 0.9% 10 ML SYRINGE IVP SCH ×2 (03:26→08:32)
[2017-12-27] MEDS: CIPROFLOXACIN 400 MG/200 ML 200 ML IV SCH (04:52)
[2017-12-27 06:21] LABS: BASOPHILS # (AUTO) 0.1 10^3/uL (0.0-0.1); BASOPHILS % (AUTO) 0.7 %; EOSINOPHILS # (AUTO) 0.2 10^3/uL (0.0-0.7); EOSINOPHILS % (AUTO) 1.7 %; HGB - HEMOGLOBIN 12.9 g/dL (12.0-16.0); LYMPHOCYTES # (AUTO) 1.5 10^3/uL (1.5-3.5); LYMPHOCYTES % (AUTO) 13.9 %; MEAN CORPUSCULAR HEMOGLOBIN 29.6 pg (27.0-31.0); MEAN CORPUSCULAR HGB CONC 33.6 g/dL (32.0-36.0); MEAN CORPUSCULAR VOLUME 88.2 fL (81.0-99.0); MONOCYTES # (AUTO) 0.8 10^3/uL (0.0-1.0); NEUTROPHILS # (AUTO) 8.3 10^3/uL (1.5-6.6); NEUTROPHILS % (AUTO) 76.7 %; PLT - PLATELET COUNT 264 10^3/uL (130-450); RED BLOOD COUNT 4.35 10^6/uL (4.20-5.40); RED CELL DISTRIBUTION WIDTH 12.7 % (12.0-15.0); WHITE BLOOD COUNT 10.8 x10^3/uL (4.8-10.8)
[2017-12-27 06:41] LABS: ALBUMIN 3.4 g/dL (3.2-5.5); ALBUMIN/GLOBULIN RATIO 1.2 (1.0-2.2); BILIRUBIN,TOTAL 0.8 mg/dL (0.2-1.0); CALCIUM 8.3 mg/dL (8.5-10.3); CREATININE 0.7 mg/dL (0.4-1.0); CRP - C-REACTIVE PROTEIN 7.5 mg/dL (0-1.0); MAGNESIUM 1.9 mg/dL (1.7-2.8); PHOSPHORUS 2.9 mg/dL (2.5-4.6); TOTAL PROTEIN 6.3 g/dL (6.7-8.2)
[2017-12-27] MEDS: PANTOPRAZOLE 40 MG TABLET PO SCH (06:42)
[2017-12-27 07:34] VITALS: BP 140/75
[2017-12-27] MEDS: POLYETHYLENE GLYCOL 3350 17 GM PACKET PO SCH (08:32)
[2017-12-27] MEDS: SACCHAROMYCES BOULARDII 250 MG CAPSULE PO SCH ×2 (10:31→13:51)
--- NOTE | 2017-12-27 12:04 | Discharge Plan ---
Discharge Plan Disposition: Home, Self Care Condition: Good Prescriptions: Ciprofloxacin HCl [Cipro] 500 mg PO BID #10 tablet Metronidazole [Flagyl] 500 mg PO BID #10 tablet Saccharomyces Boulardii [Florastor] 250 mg PO BID #60 capsule Wheat Dextrin [Benefiber] 1 each PO DAILY #30 packet Diet: Soft Activity Restrictions: Activity as Tolerated Shower Restrictions: No Driving Restrictions: No Additional Instructions or Follow Up instructions: You were admitted for rectal bleeding and low abdominal pain. This slowly improved and you were treated with IV antibiotics that will continue in a pill form at home. We requested the colonoscopy report from [place], and you were provided with a copy of this document which showed diverticulosis, and no suspected malignancy or cancer. Our imaging showed a fatty liver, which may eventually lead to liver cirrhosis later in life. This condition needs to followed by your PCP. 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 You should check in with your towing pilot as to their recommendations for follow up. Please see your PCP within one week. No Smoking: If you smoke, Please STOP! Call for help. Follow-up with: FAYE WATERS [Primary Care Provider] -
--- NOTE | 2017-12-27 12:18 | DISCHARGE SUMMARY ---
Discharge Summary Admit Date: 12/24/17 Discharge Date: 12/27/17 Discharging Provider: CANELO Mckee Primary Care Provider: Ingrid Blanton Code Status: Attempt Resuscitation Condition at Discharge: Good Discharge Disposition: 01 Home, Self Care - DIAGNOSES Admission Diagnoses: Colitis (K52.9) Nausea with vomiting, unspecified (R11.2) Diarrhea (R19.7) Abdominal pain (R10.9) Hemorrhage of anus and rectum (K62.5) Discharge Diagnoses with Status of Each Condition: Diverticulitis (K57.92) improved, no bleeding per rectum on discharge. Continue Cipro/Flagyl at home. Diverticulosis (K57.90) chronic, daily benefiber to continue. Diarrhea (R19.7) resolved. Abdominal pain (R10.9) resolved. Colitis (K52.9) improved. GI bleed (K92.2) resolved. Fatty liver disease, nonalcoholic (K76.0) new on this admission. Impaired fasting glucose (R73.01) new on this admission, recommend follow up and exercise. - HPI History of Present Illness: Kayce Bartholomew is a 52-year old female with a very minimal past medical history of seasonal allergies and mild obesity. She presented to the ER with complaints of nausea, vomiting, bloody diarrhea, and lower quadrant abdominal pain that started last night. She denies recent travel or any known food poisoning and reported eating a very fatty steak last night for dinner. On December 07, she had a colonoscopy due to a positive colo-gaurd test. Colonoscopy results showed no cancer, diverticulosis in the sigmoid colon and the descending colon; with internal hemorrhoids and was performed at [facility]. An abdominal CT showed focal segment of ischemic colitis versus inflammatory/infectious colitis. There was no free air or abscess, no bowel obstruction, or no diverticulitis. Lab reveals significantly elevated WBC at 18.2 with no other lab abnormalities. GI Surgeon, Dr. Thapa, was consulted for GI bleeding and possible ischemic colitis. On exam the patient denied fevers, chills, chest pain, or shortness of breath. She was admitted for further inpatient care and treatment of her bloody stools and lab monitoring. - HOSPITAL COURSE Hospital Course: (1) Colitis Imaging confirms likely infective colitis and the patient continues to have blo toribio diarrhea despite 4 days of inpatient treatment. General surgery is following. She is prescribed Cipro/Flagyl IV, which continues. Stool testing was negative. She had bilateral lower abdominal pain that was intermittent and had resolved prior to discharge. (2) GI bleed The patient continued to have several blood stools, but as per the patient they were becoming more mixed with stool, then finally resolved. (3) Diarrhea The patient states that she has had several loose, blood stools, but denied dizziness or evidence of acute blood loss. This condition resolved upon discharge. (4) Abdominal pain The patient had much less abdominal pain and this pain was intermittent. She was prescribed IV morphine as needed for pain and her diet was advanced to a full liquid, then a soft diet prior to discharge. (5) Fatty liver disease, nonalcoholic Imaging revealed a fatty liver. The patient denies any alcohol use and does not have other signs of this on exam. The patient was provided teaching and recommend follow up with PCP. A HgA1C was checked prior to discharge and was 5.9%. (6) Impaired fasting glucose The patient is considered to have this based on her elevated early AM sugars of greater than 126, and her hemoglobin A1C level of 5.9%. She was encouraged to start gentle, purposeful exercise after treatment of this acute illness and be followed by her PCP. (7) Diverticulititis/diverticulosis The patient was treated for this using IV antibiotics, and sent home with Cipro- flagyl to continue at home. She was no longer having bloody stools and was tolerating a diet upon discharge. Disposition: The patient was anxious to return home and her son took her via private car. She had no further symptoms, including a resolution of her abdominal pain. - ALLERGIES Allergies/Adverse Reactions: Allergies Allergy/AdvReac Type Severity Reaction Status Date / Time No Known Drug Allergies Allergy Verified 12/24/17 09:34 - MEDICATIONS Home Medications: Ambulatory Orders Medication Instructions Recorded Confirmed Cetirizine HCl [Zyrtec] 10 mg PO DAILY PRN 01/25/15 12/27/17 Aspirin [Adult Aspirin Regimen] 81 mg PO DAILY 12/24/17 12/27/17 Ciprofloxacin HCl [Cipro] 500 mg PO BID #10 tablet 12/27/17 Metronidazole [Flagyl] 500 mg PO BID #10 tablet 12/27/17 Multivitamin [Theragran] 1 tab PO DAILY 12/27/17 12/27/17 Saccharomyces Boulardii [Florastor] 250 mg PO BID #60 capsule 12/27/17 Wheat Dextrin [Benefiber] 1 each PO DAILY #30 packet 12/27/17 - PHYSICAL EXAM AT DISCHARGE General Appearance: positive: No acute distress, Alert Eyes Bilateral: positive: Normal inspection, PERRL ENT: positive: ENT inspection nml, Pharynx nml, No signs of dehydration Neck: positive: Nml inspection, Thyroid nml, No JVD, Trachea midline Respiratory: positive: Chest non-tender, No respiratory distress, Other (slight crackles in bilateral low lobes, cleared after instructed to cough.) Cardiovascular: positive: Regular rate & rhythm, No gallop, Systolic murmur Peripheral Pulses: positive: 2+ Abdomen: positive: Non-tender, Nml bowel sounds, Other (rounded, soft) Back: positive: Nml inspection Skin: positive: Color nml, No rash, Warm, Dry Extremities: positive: Non-tender, Full ROM, Nml appearance Neurologic/Psychiatric: positive: Oriented x3, CN's nml (2-12), Motor nml, Sensation nml, Mood/affect nml - LABS Result Diagrams: 12/27/17 05:30 12/27/17 05:40 - DIAGNOSTIC IMAGING Diagnostic Imaging Results: Final report reviewed Diagnostic Imaging Results Comments: EXAM: CT ABDOMEN AND PELVIS EXAM DATE: 12/24/2017 12:18 PM. IMPRESSION: 1. Segmental marked nodular thickening and mild pericolonic edema involving the distal transverse colon to the distal descending colon. Findings may be due to focal segment of ischemic colitis versus inflammatory/infectious colitis. No free air or abscess. 2. Normal appendix. 3. Colonic diverticulosis. No diverticulitis. No bowel obstruction. 4. Nonobstructing bilateral renal calculi. 5. Fatty liver. - FOLLOW UP Follow Up: Disposition: Home, Self Care Condition: Good Prescriptions: Ciprofloxacin HCl [Cipro] 500 mg PO BID #10 tablet Metronidazole [Flagyl] 500 mg PO BID #10 tablet Saccharomyces Boulardii [Florastor] 250 mg PO BID #60 capsule Wheat Dextrin [Benefiber] 1 each PO DAILY #30 packet Diet: Soft Additional Instructions or Follow Up instructions: You were admitted for rectal bleeding and low abdominal pain. This slowly improved and you were treated with IV antibiotics that will continue in a pill form at home. We requested the colonoscopy report from [place], and you were provided with a copy of this document which showed diverticulosis, and no suspected malignancy or cancer. Our imaging showed a fatty liver, which may eventually lead to liver cirrhosis later in life. This condition needs to followed by your PCP. 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 You should check in with your graduate assistant athletic trainer as to their recommendations for follow up. Please see your PCP within one week. - TIME SPENT Time Spent in Discharge (Minutes): 55
[2017-12-27 12:51] LABS: HB2 TOTAL 13.1 g/dL; HEMOGLOBIN A1C 0.54 g/dL; HEMOGLOBIN A1C % 5.9 % (4.6-6.2)
[2017-12-27] MEDS ORDERED: metroNIDAZOLE 250 MG TABLET PO SCH (12:56)
[2017-12-27] MEDS ORDERED: CIPROFLOXACIN 250 MG TABLET PO SCH (12:56)
== END 2017-12-27 14:00 | disposition home or self-care (01) | DRG 391 ==
LOC: ED 09:05 → MS2 15:29
PROVIDERS: ADMIT Nurse Practitioner Gerontology; ATTEND Nurse Practitioner
DX: A09 Infectious gastroenteritis and colitis, unspecified (principal); K57.33 Diverticulitis of large intestine without perforation or abscess with bleeding; K76.0 Fatty (change of) liver, not elsewhere classified; K64.8 Other hemorrhoids
CPT/HCPCS: 36415; 74177; 80053; 81001; 81003; 82272; 83036; 83690; 83735; 84100; 84703; 85014; 85018; 85025; 85651; 86140; 87045; 87046; 87086; 87493; 96361; 96365; 96375; 96376; 99284

== ENCOUNTER 2019-06-01 16:40 | Emergency (ER) | payer OTHER ==
[2019-06-01] MEDS ORDERED: SODIUM CHLORIDE 0.9% 1,000 ML IV ONE (16:55)
[2019-06-01] MEDS ORDERED: ONDANSETRON 4 MG/2 ML VIAL IVP STA (16:55)
[2019-06-01] MEDS ORDERED: KETOROLAC 30 MG/ML VIAL IVP STA (16:55)
[2019-06-01] MEDS ORDERED: IOVERSOL 320 100 ML VIAL IVP ONE ×2 (17:00→17:54)
--- NOTE | 2019-06-01 17:00 | ED Physician Documentation ---
PD HPI ABD PAIN - Stated complaint Stated Complaint: LT BACK ABD PX, VOMITING - Chief complaint Chief Complaint: Abd Pain - History obtained from History obtained from: Patient - History of Present Illness Timing - onset: How many days ago (4) Timing - duration: Days (4) Timing - details: Gradual onset Pain level max: 8 Pain level now: 7 Quality: Aching, Pain Location: LLQ, Other (L flank) Improved by: Other (nothing) Worsened by: Moving Associated symptoms: Nausea, Vomiting, Diarrhea, Hematuria. No: Fever Similar symptoms before: Diagnosis (kidney stones, colitis) Recently seen: Not recently seen - Additional information Additional information: took flomax and tylenol without relief Review of Systems Ten Systems: 10 systems reviewed and negative Constitutional: denies: Fever, Chills Ears: denies: Ear pain Nose: denies: Rhinorrhea / runny nose, Congestion Respiratory: denies: Cough GI: denies: Hematemesis, Bloody / black stool : reports: Hematuria. 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 : Kidney stones HEENT: None Psych: None Musculoskeletal: None Derm: None - Past Surgical History Past Surgical History: No - Present Medications Home Medications: Ambulatory Orders Medication Instructions Recorded Confirmed Cetirizine HCl [Zyrtec] 10 mg PO DAILY PRN 01/25/15 12/27/17 Aspirin [Adult Aspirin Regimen] 81 mg PO DAILY 12/24/17 12/27/17 Ciprofloxacin HCl [Cipro] 500 mg PO BID #10 tablet 12/27/17 Metronidazole [Flagyl] 500 mg PO BID #10 tablet 12/27/17 Multivitamin [Theragran] 1 tab PO DAILY 12/27/17 12/27/17 Saccharomyces Boulardii [Florastor] 250 mg PO BID #60 capsule 12/27/17 Wheat Dextrin [Benefiber] 1 each PO DAILY #30 packet 12/27/17 Ibuprofen [Motrin] 800 mg PO Q8H PRN #30 tablet 06/01/19 Ondansetron Odt [Zofran] 4 mg TL Q6H PRN #10 tablet 06/01/19 Oxycodone HCl 5 - 10 mg PO Q6H PRN #14 tablet 06/01/19 - Allergies Allergies/Adverse Reactions: Allergies Allergy/AdvReac Type Severity Reaction Status Date / Time No Known Drug Allergies Allergy Verified 06/01/19 16:44 - Social History Does the pt smoke?: No Smoking Status: Never smoker Does the pt drink ETOH?: No Does the pt have substance abuse?: No - Immunizations Immunizations are current?: Yes - POLST POLST Status: Full Code PD ED PE NORMAL - Vitals Vital signs reviewed: Yes - General General: Alert and oriented X 3, Well developed/nourished, Other (Appears uncomfortable, holding left lower abdomen) - HEENT HEENT: Moist mucous membranes - Neck Neck: Supple, no meningeal sign - Cardiac Cardiac: RRR - Respiratory Respiratory: No respiratory distress, Clear bilaterally - Abdomen Abdomen: Soft, Non distended, Other (Tender to palpation left lower quadrant. No peritoneal signs.) - Back Back: No CVA TTP, No spinal TTP - Derm Derm: Warm and dry - Extremities Extremities: No edema - Neuro Neuro: Alert and oriented X 3 - Psych Psych: Normal mood, Normal affect Results - Vitals Vitals: Vital Signs - 24 hr 06/01/19 16:44 Temperature 36.8 C Heart Rate 96 Respiratory 14 Rate Blood Pressure 147/77 H O2 Saturation 98 Oxygen O2 Source Room air - Labs Labs: Laboratory Tests 06/01/19 06/01/19 06/01/19 16:51 17:00 17:00 WBC 10.3 RBC 4.92 Hgb 14.0 Hct 44.7 MCV 90.9 MCH 28.5 MCHC 31.3 L RDW 12.5 Plt Count 290 MPV 10.5 Neut # (Auto) 8.7 H Lymph # (Auto) 1.1 L [place] # (Auto) 0.4 Eos # (Auto) 0.0 Baso # (Auto) 0.0 Absolute Nucleated RBC 0.00 Nucleated RBC % 0.0 Sodium 134 L Potassium 3.8 Chloride 102 Carbon Dioxide 21 Anion Gap 11.0 BUN 22 H Creatinine 1.0 Estimated GFR (MDRD) 58 L Glucose 158 H Calcium 8.9 Total Bilirubin 0.8 AST 32 ALT 25 Alkaline Phosphatase 84 Total Protein 7.7 Albumin 4.4 Globulin 3.3 Albumin/Globulin Ratio 1.3 Lipase 32 Urine Color DARK YELLOW Urine Clarity CLOUDY Urine pH 6.0 Ur Specific [place] >=1.030 H Urine Protein 100 H Urine Glucose (UA) NEGATIVE Urine Ketones TRACE Urine Occult Blood LARGE H Urine Nitrite NEGATIVE Urine Bilirubin NEGATIVE Urine Urobilinogen 0.2 (NORMAL) Ur Leukocyte Esterase TRACE H Urine RBC TNTC H Urine WBC 4-5 Ur Squamous Epith Cells FEW Squamous Urine Bacteria Rare Urine Mucus Few Strands Urine Yeast PRESENT Ur Microscopic Review INDICATED Urine Culture Comments INDICATED - Rads (name of study) CT abdomen pelvis Radiology: Prelim report reviewed, EMP read contemporaneously, See rad report (1. 4 mm distal left ureter stone at ureterovesicular junction. Mild to moderate left hydronephrosis. 2. Multiple bilateral kidney stones, left larger than right. 3. Steatosis of the liver. 4. Colonic diverticulosis. ) PD MEDICAL DECISION MAKING - ED course Complexity details: reviewed results, re-evaluated patient, considered differential, d/w patient ED course: 53-year-old female found to have a 4 mm distal left ureteral stone at the UVJ. Mild to moderate left hydronephrosis. No evidence of concurrent infection. She is well-appearing, nontoxic. Tolerating p.o. without difficulty. Pain well controlled. Will place on pain medication for home. Given IV fluids here as well. Patient counseled regarding signs and symptoms for which I believe and urgent re-evaluation would be necessary. Patient with good understanding of and agreement to plan and is comfortable going home at this time This document was made in part using voice recognition software. While efforts are made to proofread this document, sound alike and grammatical errors may occur. Departure - Departure Disposition: 01 Home, Self Care Clinical Impression: Renal colic Condition: Good Instructions: ED Stone Renal W Colic Follow-Up: FAYE WATERS [Primary Care Provider] - Within 1 week Prescriptions: Ibuprofen [Motrin] 800 mg PO Q8H PRN #30 tablet PRN Reason: PAIN &/OR FEVER Ondansetron Odt [Zofran] 4 mg TL Q6H PRN #10 tablet PRN Reason: Nausea / Vomiting Oxycodone HCl 5 - 10 mg PO Q6H PRN #14 tablet PRN Reason: pain Comments: Use the medications as provided as needed for pain. Return if you worsen. Follow-up with your doctor for further care. Return especially for uncontrolled pain and/or fevers. Do not drink alcohol or drive while on narcotic pain medicine. Note that many narcotic pain relievers also contain tylenol/acetaminophen. Please ensure that your total dose of acetaminophen from all sources does not exceed 3 grams (3000mg) per day. You may constipated on this medication, take a stool softener such as "Colace" twice a day while you are on it. Also recommend a egeu-whe-jndfxsw laxative such as senna or MiraLAX any day that you do not have a bowel movement. If you received narcotic pain medication in the emergency department, do not drive or operate machinery for the next 24 hours.
[2019-06-01 17:07] LABS: BILIRUBIN,URINE NEGATIVE (NEGATIVE); GLUCOSE, URINE (UA) NEGATIVE (NEGATIVE); KETONES,URINE (UA) TRACE mg/dL (NEGATIVE); LEUKOCYTE ESTERASE, URINE TRACE (NEGATIVE); NITRITE,URINE NEGATIVE (NEGATIVE); OCCULT BLOOD,URINE LARGE (NEGATIVE); PROTEIN,URINE 100 mg/dL (NEGATIVE); UROBILINOGEN,URINE 0.2 (NORMAL) E.U./dL (NORMAL)
[2019-06-01 17:15] LABS: CLARITY,URINE CLOUDY (CLEAR)
[2019-06-01 17:20] LABS: BASOPHILS % (AUTO) 0.4 %; EOSINOPHILS % (AUTO) 0.2 %; LYMPHOCYTES # (AUTO) 1.1 10^3/uL (1.5-3.5); LYMPHOCYTES % (AUTO) 10.9 %; MEAN CORPUSCULAR HEMOGLOBIN 28.5 pg (27.0-31.0); MEAN CORPUSCULAR HGB CONC 31.3 g/dL (32.0-36.0); MEAN CORPUSCULAR VOLUME 90.9 fL (81.0-99.0); MEAN PLATELET VOLUME 10.5 fL (7.9-10.8); MONOCYTES # (AUTO) 0.4 10^3/uL (0.0-1.0); NEUTROPHILS # (AUTO) 8.7 10^3/uL (1.5-6.6); NEUTROPHILS % (AUTO) 83.9 %; PLT - PLATELET COUNT 290 10^3/uL (130-450); RED BLOOD COUNT 4.92 10^6/uL (4.20-5.40); RED CELL DISTRIBUTION WIDTH 12.5 % (12.0-15.0); WHITE BLOOD COUNT 10.3 x10^3/uL (4.8-10.8)
[2019-06-01 17:27] LABS: BACTERIA,URINE Rare /HPF (None Seen); MUCUS,URINE Few Strands; RBC,URINE TNTC /HPF (0-5); SQUAMOUS EPITHELIAL CELL,UR FEW Squamous (<= Few); YEAST,URINE PRESENT
[2019-06-01 17:33] LABS: ALBUMIN 4.4 g/dL (3.2-5.5); ALBUMIN/GLOBULIN RATIO 1.3 (1.0-2.2); BILIRUBIN,TOTAL 0.8 mg/dL (0.2-1.0); CALCIUM 8.9 mg/dL (8.5-10.3); TOTAL PROTEIN 7.7 g/dL (6.7-8.2)
--- NOTE | 2019-06-01 18:47 | CT Report ---
Reason: LLQ Abdominal pain, stone vs diverticulitis Procedure Date: 06/01/2019 Accession Number: [id number] / [id number] Procedure: CT - Abdomen/Pelvis W CPT Code: Final Report FULL RESULT: EXAM: CT ABDOMEN AND PELVIS EXAM DATE: 06/01/2019 05:53 PM. CLINICAL HISTORY: LLQ Abdominal pain, stone vs diverticulitis. COMPARISONS: ABDOMEN/PELVIS W/ 12/24/2017 12:13 PM. TECHNIQUE: Routine helical CT imaging was performed through the abdomen and pelvis. IV contrast: 100 cc Optiray 320 IV. Enteric contrast: No. Reconstructions: Coronal and sagittal. In accordance with CT protocol optimization, one or more of the following dose reduction techniques were utilized for this exam: automated exposure control, adjustment of mA and/or KV based on patient size, or use of iterative reconstructive technique. FINDINGS: Lung Bases: Unremarkable. Liver: The liver parenchyma is low in density. There is focal fatty sparing adjacent to the gallbladder. Liver vessels are patent. Gallbladder/Bile Ducts: Unremarkable. Spleen: Normal. Pancreas: Normal. Adrenal Glands: Normal. Kidneys: There is a 4 mm stone in the distal left ureter. There is mild to moderate hydronephrosis of the left kidney. There are multiple left kidney stones. There is a stone in the left renal calyx that measures 12 x 8 mm with other smaller stones. There are multiple small nonobstructing right kidney stones without hydronephrosis. Peritoneal Cavity/Bowel: Normal. No free fluid, free air or adenopathy. No masses or acute inflammatory process. The appendix is well visualized and normal. Pelvic Organs: There is colonic diverticulosis without acute diverticulitis. Urinary bladder is unremarkable. Uterus is anteverted. Ovaries are normal in size. Vasculature: No aneurysms or other significant abnormality. Bones: There is moderate disk height loss with endplate disk degenerative disease at L3-L4. Other: None. IMPRESSION: 1. 4 mm distal left ureter stone at ureterovesicular junction. Mild to moderate left hydronephrosis. 2. Multiple bilateral kidney stones, left larger than right. 3. Steatosis of the liver. 4. Colonic diverticulosis. RADIA
[2019-06-01] MEDS ORDERED: oxyCODONE 5 MG TABLET PO STA (18:56)
[2019-06-01 19:09] VITALS: BP 126/78
== END 2019-06-01 19:10 | disposition home or self-care (01) ==
LOC: ED 16:40
DX: N13.2 Hydronephrosis with renal and ureteral calculous obstruction (principal); K76.0 Fatty (change of) liver, not elsewhere classified; K57.90 Diverticulosis of intestine, part unspecified, without perforation or abscess without bleeding; Z79.82 Long term (current) use of aspirin; Z87.442 Personal history of urinary calculi
CPT/HCPCS: 36415; 74177; 80053; 81001; 83690; 85025; 87086; 96361; 96374; 99284; A9270; Q9967; 81003

== ENCOUNTER 2021-09-01 09:29 | Emergency (ER) | payer OTHER ==
--- NOTE | 2021-09-01 09:41 | ED Physician Documentation ---
PD HPI FEMALE - Stated complaint Stated Complaint: WITH KIDNEY INFECTION SYMPTOM - History obtained from History obtained from: Patient - History of Present Illness Timing - onset: How many days ago (5) Timing - duration: Days (5) Timing - details: Abrupt onset, Still present, Waxing and waning (was ill generally with aches and fever for 3 days and then felt some better yesterday. Return to feeling ill today, with some right low back pain as well.) Associated symptoms: Fever, Back pain (right low back.). No: Abdominal pain, Vaginal discharge, Dysuria, Urinary frequency Contributing factors: No: Exposed to STD Similar symptoms before: Has not had sx before (has had UTIs in the past but this does not feel like that, but called PMD office and referred to ER in case of kidney infection or such.) Review of Systems Constitutional: reports: Fever, Chills, Myalgias Nose: reports: Rhinorrhea / runny nose, Congestion. denies: Sinus pressure / pain Throat: denies: Sore throat Respiratory: denies: Cough GI: reports: Nausea. denies: Abdominal Pain, Vomiting, Diarrhea : denies: Dysuria, Frequency Skin: denies: Rash, Lesions Neurologic: reports: Generalized weakness. 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 : Kidney stones HEENT: None Psych: None Musculoskeletal: None Derm: None - Past Surgical History Past Surgical History: No - Present Medications Home Medications: Ambulatory Orders Medication Instructions Recorded Confirmed Cetirizine HCl [Zyrtec] 10 mg PO DAILY PRN 01/25/15 09/01/21 - Allergies Allergies/Adverse Reactions: Allergies Allergy/AdvReac Type Severity Reaction Status Date / Time No Known Drug Allergies Allergy Verified 09/01/21 09:41 - Social History Does the pt smoke?: No Smoking Status: Never smoker Does the pt drink ETOH?: No Does the pt have substance abuse?: No - Immunizations Immunizations are current?: Yes - POLST POLST Status: Full Code PD ED PE NORMAL - Vitals Vital signs reviewed: Yes - General General: Alert and oriented X 3, No acute distress, Well developed/nourished - HEENT HEENT: Moist mucous membranes, Pharynx benign - Neck Neck: Supple, no meningeal sign, No adenopathy - Cardiac Cardiac: RRR, No murmur - Respiratory Respiratory: Clear bilaterally - Abdomen Abdomen: Normal bowel sounds, Soft, Non tender, Non distended - Back Back: No CVA TTP, No spinal TTP, Other (some tender in lower right lumbar muscles. ) - Derm Derm: Normal color, Warm and dry, No rash - Neuro Neuro: Alert and oriented X 3, No motor deficit, Normal speech Results - Vitals Vitals: Vital Signs - 24 hr 09/01/21 09/01/21 09:37 11:00 Temperature 36.8 C 36.6 C Heart Rate 91 89 Respiratory 16 16 Rate Blood Pressure 143/70 H 122/79 O2 Saturation 96 98 Oxygen O2 Source Room air - Labs Labs: Laboratory Tests 09/01/21 09/01/21 09/01/21 09:46 10:03 10:03 WBC 6.7 RBC 4.59 Hgb 13.3 Hct 41.4 MCV 90.2 MCH 29.0 MCHC 32.1 RDW 12.8 Plt Count 304 MPV 10.2 Neut # (Auto) 4.8 Lymph # (Auto) 1.2 L [place] # (Auto) 0.6 Eos # (Auto) 0.2 Baso # (Auto) 0.0 Absolute Nucleated RBC 0.00 Nucleated RBC % 0.0 Sodium 137 Potassium 4.2 Chloride 102 Carbon Dioxide 24 Anion Gap 11.0 BUN 23 H Creatinine 1.1 H Estimated GFR (MDRD) 51 L Glucose 142 H Calcium 9.4 Total Bilirubin 0.2 AST 24 ALT 22 Alkaline Phosphatase 68 C-Reactive Protein 10.9 H Total Protein 7.9 Albumin 3.9 Globulin 4.0 Albumin/Globulin Ratio 1.0 Lipase 41 Urine Color LIGHT YELLOW Urine Clarity CLEAR Urine pH 6.0 Ur Specific [place] 1.010 Urine Protein NEGATIVE Urine Glucose (UA) NEGATIVE Urine Ketones NEGATIVE Urine Occult Blood SMALL H Urine Nitrite NEGATIVE Urine Bilirubin NEGATIVE Urine Urobilinogen 0.2 (NORMAL) Ur Leukocyte Esterase NEGATIVE Urine RBC 0-5 Urine WBC 0-3 Ur Squamous Epith Cells FEW Squamous Urine Bacteria Few Ur Microscopic Review INDICATED Urine Culture Comments NOT INDICATED PD MEDICAL DECISION MAKING - ED course Complexity details: reviewed results (CRP elevated but WBC normal. Consider viral illness as not obvious bacterial cause. Had malaise and fevers for 5 days, with back pain just today in muscular area, so I did not feel like imaging useful for now.), considered differential (does not seem like kidney infection, but can check UA. Can check labs to eval for elevated white count, etc. ), d/w patient Departure - Departure Disposition: 01 Home, Self Care Clinical Impression: Malaise Fever Qualifiers: Fever type: unspecified Qualified Code(s): R50.9 - Fever, unspecified Low back pain Qualifiers: Chronicity: acute Back pain laterality: unspecified Sciatica presence: without sciatica Qualified Code(s): M54.50 - Low back pain, unspecified Condition: Stable Record reviewed to determine appropriate education?: Yes Follow-Up: KATHY BARR DO [Primary Care Provider] - Comments: Your urine does not show any signs of infection. Your white count is normal as well. An inflammatory marker called the CRP is elevated which is nondiagnostic of any particular process but does go along with the idea of an inflammatory condition/infectious condition. Presume at this point still a viral type illness. Continue with the Tylenol and ibuprofen 3 times daily. Stay well-hydrated otherwise. Try not to continue full doses more than few more days so it does not bother your stomach etc. Recheck if still not improved over a few more days or if you develop more localized symptoms. Discharge Date/Time: 09/01/21 11:02
[2021-09-01 09:56] LABS: BILIRUBIN,URINE NEGATIVE (NEGATIVE); GLUCOSE, URINE (UA) NEGATIVE (NEGATIVE); KETONES,URINE (UA) NEGATIVE (NEGATIVE); LEUKOCYTE ESTERASE, URINE NEGATIVE (NEGATIVE); NITRITE,URINE NEGATIVE (NEGATIVE); OCCULT BLOOD,URINE SMALL (NEGATIVE); PROTEIN,URINE NEGATIVE (NEGATIVE); UROBILINOGEN,URINE 0.2 (NORMAL) E.U./dL (NORMAL)
[2021-09-01 09:57] LABS: CLARITY,URINE CLEAR (CLEAR)
[2021-09-01 10:07] LABS: BASOPHILS % (AUTO) 0.4 %; EOSINOPHILS # (AUTO) 0.2 10^3/uL (0.0-0.7); EOSINOPHILS % (AUTO) 2.5 %; HCT - HEMATOCRIT 41.4 % (37.0-47.0); HGB - HEMOGLOBIN 13.3 g/dL (12.0-16.0); LYMPHOCYTES # (AUTO) 1.2 10^3/uL (1.5-3.5); LYMPHOCYTES % (AUTO) 17.3 %; MEAN CORPUSCULAR HGB CONC 32.1 g/dL (32.0-36.0); MEAN CORPUSCULAR VOLUME 90.2 fL (81.0-99.0); MEAN PLATELET VOLUME 10.2 fL (7.9-10.8); MONOCYTES # (AUTO) 0.6 10^3/uL (0.0-1.0); MONOCYTES % (AUTO) 8.4 %; NEUTROPHILS # (AUTO) 4.8 10^3/uL (1.5-6.6); PLT - PLATELET COUNT 304 10^3/uL (130-450); RED BLOOD COUNT 4.59 10^6/uL (4.20-5.40); RED CELL DISTRIBUTION WIDTH 12.8 % (12.0-15.0); WHITE BLOOD COUNT 6.7 x10^3/uL (4.8-10.8)
[2021-09-01 10:11] LABS: RBC,URINE 0-5 /HPF (0-5); SQUAMOUS EPITHELIAL CELL,UR FEW Squamous (<= Few); WBC,URINE 0-3 /HPF (0-5)
[2021-09-01 10:12] LABS: BACTERIA,URINE Few /HPF (None Seen)
[2021-09-01 10:26] LABS: ALBUMIN 3.9 g/dL (3.2-5.5); BILIRUBIN,TOTAL 0.2 mg/dL (0.2-1.0); CALCIUM 9.4 mg/dL (8.5-10.3); CREATININE 1.1 mg/dL (0.4-1.0); CRP - C-REACTIVE PROTEIN 10.9 mg/dL (0-1.0); POTASSIUM 4.2 mmol/L (3.5-5.0); TOTAL PROTEIN 7.9 g/dL (6.7-8.2)
[2021-09-01 11:01] VITALS: BP 122/79
== END 2021-09-01 11:02 | disposition home or self-care (01) ==
LOC: ED 09:29
DX: R50.9 Fever, unspecified (principal); M54.50 Low back pain, unspecified; R53.81 Other malaise
CPT/HCPCS: 36415; 80053; 81001; 81003; 83690; 85025; 86140; 87086; 99282; 99283

== ENCOUNTER 2023-07-16 14:51 | Emergency (ER) | payer OTHER ==
[2023-07-16 15:20] VITALS: BP 165/82; O2SAT 97
--- NOTE | 2023-07-16 16:56 | XRAY Report ---
PROCEDURE: Foot 3+V RT INDICATIONS: Trauma TECHNIQUE: 3 views of the foot were obtained. COMPARISON: None FINDINGS: Bones: Nondisplaced fracture through the head of the first proximal phalanx Soft tissues: Unremarkable. No radiopaque foreign body. IMPRESSION: Intra-articular fracture, head of the first proximal phalanx. No . Reviewed by: Tiburcio Brown MD on 07/16/2023 3:54 PM [facility] Approved by: Tiburcio Brown MD on 07/16/2023 3:54 PM AKDT Station ID: [id number]
--- NOTE | 2023-07-16 17:12 | ED Physician Documentation ---
History of Present Illness - Stated complaint Stated Complaint: RT FOOT INJ - Chief complaint Chief Complaint: Trauma Ext - History obtained from History obtained from: Patient, Family - History of Present Illness Timing: Today Pain level max: 8 Pain level now: 2 - Additonal information Additional information: 58-year-old female states that she was rolling something out of a trailer when it fell onto her right foot, injuring the right great toe and second toe. Has bleeding to the great toe as well. Tetanus up-to-date. Worse with walking, better with rest. Not anticoagulated. Tetanus shot is up-to-date.No other injuries. 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 : Kidney stones HEENT: None Psych: None Musculoskeletal: None Derm: None - Past Surgical History Past Surgical History: No - Present Medications Home Medications: Ambulatory Orders Medication Instructions Recorded Confirmed Cetirizine HCl [Zyrtec] 10 mg PO DAILY PRN 01/25/15 07/16/23 cephALEXin [Keflex] 500 mg PO Q6H #28 cap 07/16/23 - Allergies Allergies/Adverse Reactions: Allergies Allergy/AdvReac Type Severity Reaction Status Date / Time No Known Drug Allergies Allergy Verified 07/16/23 15:14 - Social History Does the pt smoke?: No Smoking Status: Never smoker Does the pt drink ETOH?: No Does the pt have substance abuse?: No - Immunizations Immunizations are current?: Yes - POLST POLST Status: Full Code PD ED PE NORMAL - Vitals Vital signs reviewed: Yes - General General: Alert and oriented X 3, No acute distress - HEENT HEENT: Moist mucous membranes - Derm Derm: Warm and dry - Extremities Extremities: Other (R foot - Tender palpation over the right great toe, mild swelling. There is a laceration across the IP joint, approximately 2 cm in length. There is also a small subungual hematoma. Otherwise normal examination of the right foot.) - Neuro Neuro: Alert and oriented X 3 Results - Vitals Vitals: Vital Signs - 24 hr 07/16/23 15:10 Temperature 36.4 C L Heart Rate 91 Respiratory 16 Rate Blood Pressure 165/82 H O2 Saturation 97 Oxygen O2 Source Room air - Rads (name of study) R foot xray Relevant Findings:: Final report received, See rad report Procedures - Laceration (location) R great toe Length in cm: 2 Wound type: Linear, Into subcut fat, Clean Neurovascular status: Sensory intact, Motor intact, Vascular intact Tendon involvement: Tendon intact Anesthesia: Lidocaine 1%, With bicarb Wound preparation: Irrigated copiously NS (500ml), Wound explored, To the base Skin layer closure: Nylon, Interrupted, Size #-0 - enter number (4) Other: Patient tolerated well, No complications, Neurovascular intact, Dressing applied, Tetanus UTD PD Medical Decision Making - ED course Complexity details: reviewed results, re-evaluated patient, considered differential, d/w patient, d/w family ED course: 58-year-old female with a laceration to the right great toe. This was repaired. Tolerated well. X-ray does show a intra-articular fracture of the head of the first proximal phalanx of the right great toe. Placed in a postoperative shoe. She did have a small subungual hematoma, as she was numb from the laceration repair she elected to have electrocautery performed of the nail. Electrocautery was used to trephinate the nail and remove the trapped blood. Will place on Keflex for home and have her follow-up closely with her doctor for wound checks. Patient counseled regarding signs and symptoms for which I believe and urgent re-evaluation would be necessary. Patient with good understanding of and agreement to plan and is comfortable going home at this time This document was made in part using voice recognition software. While efforts are made to proofread this document, sound alike and grammatical errors may occur. Departure - Departure Disposition: 01 Home, Self Care Clinical Impression: Toe laceration Qualifiers: Encounter type: initial encounter Toe: great toe Damage to nail status: without damage Foreign body presence: without foreign body Laterality: right Qualified Code(s): S91.111A - Laceration without foreign body of right great toe without damage to nail, initial encounter Injury, crush, toe Qualifiers: Encounter type: initial encounter Laterality: right Qualified Code(s): S97.101A - Crushing injury of unspecified right toe(s), initial encounter Toe fracture Qualifiers: Encounter type: initial encounter Toe: great toe Fracture type: open Phalanx: proximal Fracture alignment: nondisplaced Laterality: right Qualified Code(s): S92.414B - Nondisplaced fracture of proximal phalanx of right great toe, initial encounter for open fracture Subungual hematoma of foot Qualifiers: Encounter type: initial encounter Laterality: right Qualified Code(s): S90.221A - Contusion of right lesser toe(s) with damage to nail, initial encounter Condition: Good Instructions: ED Laceration Foot, ED Fx Toe Open Follow-Up: your,doctor in 1 week [Other] Prescriptions: cephALEXin [Keflex] 500 mg PO Q6H #28 cap Comments: Your sutures should be removed in approximately 10 days. This can be done with your doctor. Please wear the postoperative shoe as needed for comfort and pain. Keep the wounds clean. Return if you notice redness, swelling or drainage from the wound. You do have an intra-articular fracture at the head of the first proximal phalanx of your right great toe. This is nondisplaced. Your prescription was sent to the [facility] pharmacy. You are given your first dose of antibiotics tonight. Forms: PCP List Discharge Date/Time: 07/16/23 18:10
[2023-07-16] MEDS: BUFFERED LIDOCAINE 10 ML SYRINGE SUBQ STA (17:24)
[2023-07-16] MEDS: cephALEXin 250 MG CAPSULE PO STA (18:09)
== END 2023-07-16 18:10 | disposition home or self-care (01) ==
LOC: ED 14:51
DX: S92.411B Displaced fracture of proximal phalanx of right great toe, initial encounter for open fracture (principal); S97.101A Crushing injury of unspecified right toe(s), initial encounter; S90.221A Contusion of right lesser toe(s) with damage to nail, initial encounter; W20.8XXA Other cause of strike by thrown, projected or falling object, initial encounter; Y92.89 Other specified places as the place of occurrence of the external cause; Z79.899 Other long term (current) drug therapy
CPT/HCPCS: 11740; 12001; 73630; 99283; A9270